=== PATIENT | female | born 1970 | race African-American/Black ===

== ENCOUNTER 2025-08-29 11:20 | Emergency (ER) | payer OTHER ==
[~2025-08-29] VITALS: Ht 160 cm; Wt 79.0 kg
[~2025-08-29 11:20] MED LIST: AMOXICILLIN; CLARITHROMYCIN; COLACE; HYDROCODONE; OMEPRAZOLE
[2025-08-29 11:25] VITALS: BP 152/65; TEMP 36.9; O2SAT 100
[2025-08-29 11:28] VITALS: PULSE 89; RESP 18; O2SAT 99
== END 2025-08-29 13:59 | disposition home or self-care (01) ==
LOC: ER 11:41
DX: M21.612 Bunion of left foot (principal); L02.92 Furuncle, unspecified
CPT/HCPCS: 10060; 99282; Z7610 ×2